=== PATIENT | female | born 1975 | race Caucasian/White ===

== ENCOUNTER 2019-10-07 18:52 | Emergency (ER) | payer OTHER ==
[~2019-10-07] VITALS: Ht 167.6 cm; Wt 59.0 kg
[~2019-10-07 18:52] MED LIST: AMOXICILLIN500 MG; MECLIZINE HCL12.5 MG
== END 2019-10-07 22:13 | disposition home or self-care (01) ==
LOC: ER 18:52
DX: J02.8 Acute pharyngitis due to other specified organisms (principal); K52.89 Other specified noninfective gastroenteritis and colitis